=== PATIENT | male | born 1995 | race Caucasian/White ===

== ENCOUNTER 2020-09-08 09:43 | Emergency (ER) | payer MEDICAID ==
[~2020-09-08] VITALS: Ht 180.3 cm; Wt 86.2 kg
[2020-09-08 10:02] VITALS: BP 152/81
--- NOTE | 2020-09-08 10:30 | NUR ---
PT SEEN AND EVALUATED BY NOEMY
[2020-09-08 11:08] VITALS: BP 152/81
--- NOTE | 2020-09-08 11:09 | NUR ---
Patient discharged with v/s stable. Written and verbal after care instructions given and explained. Patient alert, oriented and verbalized understanding of instructions. Ambulatory with steady gait. All questions addressed prior to discharge. ID band removed. Patient advised to follow up with PMD. Rx of [facility] HYDROCORTISONE, BENADRYL ALLERGY given. Patient educated on indication of medication including possible reaction and side effects. Opportunity to ask questions provided and answered.
== END 2020-09-08 11:09 | disposition home or self-care (01) ==
LOC: MED 09:43
DX: L29.9 Pruritus, unspecified (principal); R03.0 Elevated blood-pressure reading, without diagnosis of hypertension
CPT/HCPCS: 99283